=== PATIENT | male | born 1995 | race African-American/Black ===

== ENCOUNTER 2017-05-01 17:05 | Emergency (ER) | payer OTHER ==
[2017-05-01 20:08] LABS: BILIRUBIN NEGATIVE (NEGATIVE); BLOOD NEGATIVE Ery/uL (NEGATIVE); CLARITY CLEAR (CLEAR); GLUCOSE (U) NORMAL (NORMAL); KETONE (U) NEGATIVE (NEGATIVE); LEUKOCYTES NEGATIVE Leu/uL (NEGATIVE); NITRITE NEGATIVE (NEGATIVE); PROTEIN NEGATIVE (NEGATIVE); SPECIFIC GRAVITY <=1.005 (1.001-1.030); UROBILINOGEN 0.2 mg/dL (0.2-1.0)
[2017-05-01 20:10] LABS: COLOR STRAW (YELLOW)
== END 2017-05-01 20:52 | disposition home or self-care (01) ==
LOC: FER 17:05
PROVIDERS: Internal Medicine
DX: N50.811 Right testicular pain (principal)
CPT/HCPCS: 76870; 81003